=== PATIENT | male | born 1975 | race Caucasian/White ===

== ENCOUNTER → 2018-05-26 | Outpatient (CLI) | payer OTHER ==
--- NOTE | 2018-05-26 13:29 | KCIC ---
Examination: MRI of the left shoulder without contrast HISTORY: History of left shoulder pain COMPARISON: None available Technique: Multiplanar, multisequence MR imaging of the left shoulder were performed without contrast. Findings: The long head biceps tendon is within the bicipital groove. The alignment of the long head of biceps tendon to the superior labral anchor grossly appears intact. The attachment of the subscapularis tendon is intact The attachment of the supraspinatus tendon grossly appears intact. There is a tiny linear increased T2 signal identified in the infraspinatus tendon in its interstitial portion at its attachment measuring 7.5 mm could be a small interstitial tear. There is mild increased signal identified in the intraspinous tendon likely mild tendinosis There is a tear of the posterior inferior labrum best visualized on series 10 image #9 and series 5 image #18 with small paravertebral cyst measuring 1.7 cm extending medially and laterally.. The muscle bulk grossly appears unremarkable. Fat is present within the rotator interval. IMPRESSION: 1. Tear of the posterior inferior labrum with a paralabral cyst measuring 1.7 cm. 2. Small 7.5 mm interstitial tear identified in the infraspinatus tendon at its attachment. 3. Mild tendinosis infraspinatus tendon. Electronically signed by: Lawson Potts MD (05/26/2018 1:24 PM) [id number]
== END | disposition home or self-care (01) ==
LOC: KCIC MRI 11:42
PROVIDERS: ATTEND Nurse Practitioner Acute Care
DX: S43.492A Other sprain of left shoulder joint, initial encounter (principal); M85.612 Other cyst of bone, left shoulder; M75.92 Shoulder lesion, unspecified, left shoulder; X58.XXXA Exposure to other specified factors, initial encounter; Y93.89 Activity, other specified; Y92.89 Other specified places as the place of occurrence of the external cause; Y99.8 Other external cause status
CPT/HCPCS: 73221